=== PATIENT | male | born 1950 | race Two or more races ===

== ENCOUNTER 2024-10-31 06:05 | Inpatient (IN) | payer MEDICARE, OTHER, SELFPAY ==
[2024-10-22 10:23] LABS: Hemoglobin 13.7 g/dL (13.0-18.0); Mean Corp Hgb Conc. 31.9 g/dL (33.0-37.0); Mean Corpuscular Hgb 28.7 pg (27.0-31.0); Mean Corpuscular Volume 90.1 fL (80.0-94.0); Mean Platelet Volume 10.9 fL (7.4-10.4); Platelet Count 164 10^3/uL (130-400); Red Blood Cell Count 4.77 10^6/uL (4.70-6.10); Red Cell Dist. Width 13.7 % (11.5-14.5); White Blood Cell Count 9.6 10^3/uL (4.8-10.8)
[2024-10-22 10:33] LABS: INR 1.22
[2024-10-22 10:34] LABS: APTT 33.3 Sec (23.4-35.0)
[2024-10-22 11:26] LABS: ALT (SGPT) 52 U/L (0-50); AST (SGOT) 49 U/L (17-59); Albumin 4.6 g/dl (3.5-5.0); Alkaline Phosphatase 86 U/L (38-126); Blood Urea Nitrogen 19 mg/dl (9-20); Calcium 9.8 mg/dl (8.4-10.2); Carbon Dioxide 26 mmol/L (22-30); Chloride 102 mmol/L (98-107); Glucose 151 mg/dl (70-99); Potassium 5.3 mmol/L (3.5-5.1); Sodium 139 mmol/L (135-145); Total Bilirubin 0.8 mg/dl (0.2-1.3); Total Protein 7.1 g/dl (6.3-8.2); eGFR 52.74
[2024-10-22 11:28] LABS: Glycohemoglobin (HgbA1c) 7.1 % (4.0-5.6)
[2024-10-22 11:54] LABS: CEA 5.49 ng/ml
[2024-10-22 13:09] VITALS: BMI 30.9
--- NOTE | 2024-10-23 08:17 | PTCARENOTE ---
Mera @ Dr. Harper office notified of patients 10/22 Creat- 1.4; GFR- 52.74; A1C- 7.1
[2024-10-31] VITALS (13 sets, daily range): BP systolic 133–163; BP diastolic 66–86; BMI 30.9
[2024-10-31] MEDS: ENTEREG 12 MG PO (06:23)
[2024-10-31] MEDS: TYLENOL 1000 MG PO (06:23)
[2024-10-31] MEDS: HEPARIN 5000 UNITS SC (06:23)
[2024-10-31] MEDS: NORMOSOL-R/PLASMALYTE-A 1000 IV (06:30)
[2024-10-31 06:40] LABS: Glucose - Point of Care 118 mg/dl (70-99)
--- NOTE | 2024-10-31 11:35 | W.OR.COLCA ---
Colon Cancer Post Op Note
Immediate Post Op
Primary Surgeon: Dylan Whitaker MD
Pond Worker: RUTH Gomez
Pre-op Diagnosis: Ascending colon polyp (possible cancer)
Post-op Diagnosis: Same
Procedure Performed: Robotic right colectomy with isoperistaltic intracorporeal anastomosis
Anesthesia Type: GET
Specimen / Cultures: Right colon and portion of the omentum
Estimated Blood Loss: 40cc
Complications: None
Operative Findings: Ink and 4cm polypoid lesion in the ascending colon
Small epigastric hernia
Patient's niece updated
Colon Resection
Colon Resection
Operation performed with curative intent: Yes
Tumor Location: Ascending Colon
Right Hemicolectomy: Ileocolic and Right Colic
[2024-10-31 11:58] LABS: Glucose - Point of Care 197 mg/dl (70-99)
[2024-10-31 12:25] LABS: % Basophils 0.2 % (0-2); % Eosinophils 0.1 % (0-6); % Immature Granulocytes 0.5 % (0-0.5); % Lymphocytes 6.6 % (20.5-51.1); % Monocytes 1.5 % (1.7-9.3); % Neutrophils 91.1 % (42.2-75.2); Absolute Immature Granulocytes 0.1 10^3/uL (0-0.05); Absolute Lymphocytes 0.9 10^3/uL (1.2-3.4); Absolute Monocytes 0.2 10^3/uL (0.1-0.6); Absolute Neutrophils 11.8 10^3/uL (1.4-6.5); Hematocrit 37.7 % (39.0-52.0); Hemoglobin 12.2 g/dL (13.0-18.0); Mean Corp Hgb Conc. 32.4 g/dL (33.0-37.0); Mean Corpuscular Hgb 28.5 pg (27.0-31.0); Mean Corpuscular Volume 88.1 fL (80.0-94.0); Mean Platelet Volume 10.5 fL (7.4-10.4); Nucleated Red Blood Cells % 0 % (-); Platelet Count 141 10^3/uL (130-400); Red Blood Cell Count 4.28 10^6/uL (4.70-6.10); Red Cell Dist. Width 13.4 % (11.5-14.5)
[2024-10-31] MEDS: NOVOLOG vial 2 UNITS SC (12:34)
[2024-10-31 12:38] LABS: Blood Urea Nitrogen 17 mg/dl (9-20); Calcium 8.6 mg/dl (8.4-10.2); Carbon Dioxide 19 mmol/L (22-30); Chloride 101 mmol/L (98-107); Estimated Creatinine Clearance 75 ml/min; Glucose 200 mg/dl (70-99); Potassium 4.4 mmol/L (3.5-5.1); Sodium 136 mmol/L (135-145); eGFR > 60.00
[2024-10-31] MEDS: TYLENOL 650 MG PO ×3 (12:39→19:57)
[2024-10-31] MEDS: NSS 1000 IV (13:22)
[2024-10-31 16:27] LABS: Glucose - Point of Care 173 mg/dl (70-99)
[2024-10-31] MEDS: LIPITOR 20 MG PO (17:44)
[2024-10-31] MEDS: PEPCID 40 MG PO (17:44)
[2024-10-31] MEDS: NOVOLOG FLEXPEN-LOW RESISTANCE 1 UNITS SC (17:44)
[2024-10-31] MEDS: ZETIA 10 MG PO (17:44)
[2024-10-31] MEDS: SYNTHROID 100 MCG PO (17:45)
[2024-10-31] MEDS: MURO-128/ADSORBONAC 2% EYE DROPS 1 DROP BOTH EYES (17:45)
[2024-10-31] MEDS: SYMBICORT 80/4.5 MCG INHALER 2 PUFF INH (18:05)
[2024-10-31] MEDS: ZESTRIL 20 MG PO (19:57)
[2024-10-31] MEDS: TOPROL XL 50 MG PO (19:57)
[2024-10-31 23:36] LABS: Glucose - Point of Care 211 mg/dl (70-99)
[2024-11-01] MEDS: TYLENOL 650 MG PO ×4 (00:06→20:41)
[2024-11-01] MEDS: NSS 1000 IV ×2 (01:40→15:04)
[2024-11-01 03:00] VITALS: BP 156/78
[2024-11-01] MEDS: TYLENOL PO ×2 (04:54→11:46)
[2024-11-01 06:10] LABS: % Basophils 0.1 % (0-2); % Immature Granulocytes 0.5 % (0-0.5); % Lymphocytes 6.6 % (20.5-51.1); % Monocytes 7.2 % (1.7-9.3); % Neutrophils 85.6 % (42.2-75.2); Absolute Immature Granulocytes 0.1 10^3/uL (0-0.05); Absolute Lymphocytes 0.9 10^3/uL (1.2-3.4); Absolute Monocytes 0.9 10^3/uL (0.1-0.6); Absolute Neutrophils 11.1 10^3/uL (1.4-6.5); Hematocrit 35.7 % (39.0-52.0); Hemoglobin 11.6 g/dL (13.0-18.0); Mean Corp Hgb Conc. 32.5 g/dL (33.0-37.0); Mean Corpuscular Hgb 28.1 pg (27.0-31.0); Mean Corpuscular Volume 86.4 fL (80.0-94.0); Nucleated Red Blood Cells % 0 % (-); Platelet Count 148 10^3/uL (130-400); Red Blood Cell Count 4.13 10^6/uL (4.70-6.10); Red Cell Dist. Width 13.5 % (11.5-14.5); White Blood Cell Count 12.9 10^3/uL (4.8-10.8)
[2024-11-01 06:29] LABS: Blood Urea Nitrogen 19 mg/dl (9-20); Calcium 8.8 mg/dl (8.4-10.2); Carbon Dioxide 24 mmol/L (22-30); Chloride 96 mmol/L (98-107); Estimated Creatinine Clearance 69 ml/min; Glucose 228 mg/dl (70-99); Potassium 5.2 mmol/L (3.5-5.1); Sodium 134 mmol/L (135-145); eGFR > 60.00
[2024-11-01] MEDS: SYMBICORT 80/4.5 MCG INHALER 2 PUFF INH ×2 (07:57→20:51)
[2024-11-01 07:59] LABS: Glucose - Point of Care 243 mg/dl (70-99)
[2024-11-01 08:05] VITALS: BP 158/79
[2024-11-01] MEDS: ZYLOPRIM 100 MG PO (08:09)
[2024-11-01] MEDS: PROTONIX 40 MG PO (08:09)
[2024-11-01] MEDS: NOVOLOG FLEXPEN-LOW RESISTANCE 2 UNITS SC ×3 (08:09→16:26)
[2024-11-01] MEDS: ZESTRIL 20 MG PO ×2 (08:09→20:41)
[2024-11-01] MEDS: TOPROL XL 50 MG PO ×2 (08:10→20:41)
[2024-11-01] MEDS: ENTEREG 12 MG PO ×2 (08:11→20:40)
[2024-11-01 09:37] VITALS: BP 159/86; PULSE 70; O2SAT 98
--- NOTE | 2024-11-01 09:53 | CM ---
Reviewed the chart notes and spoke with the patient at the bedside. The patient is s/p elective robotic right colectomy with intracorporeal
anastomosis. The patient resides alone in a condo with graduated four steps to enter and then seven steps down to bedroom. The patient reports having a cane and rollator in home if needed. The patient reports no VN/SNF in the past. The patient
confirmed his [facility] of choice is [facility] and his PCP is Dr. Rothman. CM continues to be available to patient/family and is monitoring medical plan for needs at discharge.
Plan: Discharge to home when medically stable. No needs anticipated at this time.
--- NOTE | 2024-11-01 10:55 | W.PN.GS2 ---
Addendum entered and electronically signed by AIDEN Butler 11/02/24 08:59:
correction to below: should read hyponatremia not hypokalemia secondary to fluid shifts
Original Note:
Today's Communication / Plan
-
Voiding trial
Pain control
Assessment / Plan
-
74 yo male with h/o afib (LD eliquis was 10/31), NIDDM, HTN with possible CA to the ascending colon now POD #1 robotic right colectomy
AFVSS
Mild acute anemia secondary to hemodilution and expected intraop losses, stable
Mild reactive leukocytosis, trending down
Mild hyperkalemia (stable from previous) and hypokalemia secondary to fluid shifts, will follow
--Continue CLD, possible advancement later today if belching resolves
--Analgesics/antiemetics
--c/w home meds, Eliquis on hold 48-72 hours post operatively
--PPI for GI ppx
--OOB/Ambulate, PT following
--D/C mary for voiding trial
--C/W IVF, decrease rate to 60ml/hr
--Trend labs
--Lovenox 40mg sq for VTE ppx
Subjective Data
-
Date of Service: November 01, 2024
Patient seen and examined at bedside with Dr. Tobin. Reports he is passing some flatus and a small liquid stool but is having burping and indigestion as well. Denies n/v. Some incisional soreness. Reports he feels weak overall when trying to move.
Objective Data
-
Intake and Output
10/31/24 11/01/24 11/02/24
06:59 06:59 06:59
Intake Total 194 / 1940
Output Total 1500 / 1500 600 / 600
Balance 440 / 440 -600 / -600
Intake:
Oral fluids 480 / 480
IV fluids (Total) 1460 / 1460
Normosal 100 / 100
Output:
Urine, Mary 1500 / 1500 600 / 600
Vital Signs
Temp Pulse Resp BP Pulse Ox
97.7 F 71 16 158/79 99
11/01/24 08:05 11/01/24 08:10 11/01/24 08:05 11/01/24 08:10 11/01/24 08:05
Lab Results
11/01/24 04:26
11/01/24 04:26
Calcium 8.8 mg/dl (8.4-10.2) 11/01/24 04:26
Total Bilirubin 0.8 mg/dl (0.2-1.3) 10/22/24 09:05
AST 49 U/L (17-59) 10/22/24 09:05
ALT 52 U/L (0-50) H 10/22/24 09:05
Alkaline Phosphatase 86 U/L (38-126) 10/22/24 09:05
Total Protein 7.1 g/dl (6.3-8.2) 10/22/24 09:05
Albumin 4.6 g/dl (3.5-5.0) 10/22/24 09:05
Physical Exam
-
NAD
ABD soft, minimal incisional tenderness, mild distention
Incisions clear, dry, intact
Mary with clear, yellow urine
[2024-11-01 11:26] VITALS: BP 151/79
[2024-11-01 11:34] LABS: Glucose - Point of Care 223 mg/dl (70-99)
[2024-11-01 15:28] VITALS: BP 138/79
[2024-11-01 16:16] LABS: Glucose - Point of Care 207 mg/dl (70-99)
[2024-11-01] MEDS: ZETIA 10 MG PO (17:42)
[2024-11-01] MEDS: PEPCID 40 MG PO (17:42)
[2024-11-01] MEDS: LIPITOR 20 MG PO (17:42)
[2024-11-01] MEDS: SYNTHROID 100 MCG PO (17:42)
[2024-11-01] MEDS: LOVENOX 40 MG SC (17:43)
[2024-11-01] MEDS: MURO-128/ADSORBONAC 2% EYE DROPS 1 DROP BOTH EYES (17:43)
[2024-11-01 21:53] LABS: Glucose - Point of Care 204 mg/dl (70-99)
[2024-11-01 23:38] VITALS: BP 126/80
[2024-11-02] MEDS: TYLENOL 650 MG PO ×4 (00:43→12:01)
[2024-11-02 07:10] VITALS: BP 138/73
[2024-11-02 07:28] LABS: Glucose - Point of Care 178 mg/dl (70-99)
[2024-11-02] MEDS: ZESTRIL 20 MG PO (07:50)
[2024-11-02] MEDS: ENTEREG 12 MG PO (07:52)
[2024-11-02] MEDS: NOVOLOG FLEXPEN-LOW RESISTANCE 1 UNITS SC ×2 (07:52→12:02)
[2024-11-02] MEDS: PROTONIX 40 MG PO (07:52)
[2024-11-02] MEDS: ZYLOPRIM 100 MG PO (07:52)
[2024-11-02] MEDS: TOPROL XL 50 MG PO (07:52)
[2024-11-02] MEDS: NSS IV (08:00)
[2024-11-02 08:02] LABS: Hematocrit 34.8 % (39.0-52.0); Hemoglobin 11.5 g/dL (13.0-18.0); Mean Corpuscular Hgb 28.9 pg (27.0-31.0); Mean Corpuscular Volume 87.4 fL (80.0-94.0); Platelet Count 134 10^3/uL (130-400); Red Blood Cell Count 3.98 10^6/uL (4.70-6.10); Red Cell Dist. Width 13.5 % (11.5-14.5); White Blood Cell Count 11.9 10^3/uL (4.8-10.8)
[2024-11-02 08:34] LABS: Blood Urea Nitrogen 15 mg/dl (9-20); Calcium 8.9 mg/dl (8.4-10.2); Carbon Dioxide 25 mmol/L (22-30); Chloride 102 mmol/L (98-107); Estimated Creatinine Clearance 83 ml/min; Glucose 158 mg/dl (70-99); Potassium 4.7 mmol/L (3.5-5.1); Sodium 135 mmol/L (135-145); eGFR > 60.00
--- NOTE | 2024-11-02 08:56 | W.PN.GS2 ---
Today's Communication / Plan
-
Advance diet
Assessment / Plan
-
74 yo male with h/o afib (LD eliquis was 10/31), NIDDM, HTN with possible CA to the ascending colon now POD #2 robotic right colectomy
AFVSS
H/H stable
Mild reactive leukocytosis, trending down
Mild hyperkalemia and hyponatremia on 11/01 now resolved
--Advance to LRD
--Analgesics/antiemetics
--c/w home meds, Eliquis on hold for now, anticipate will be able to resume tomorrow
--PPI for GI ppx
--OOB/Ambulate, PT following
--D/C IVF
--Lovenox 40mg sq for VTE ppx
discharge to home later today vs tomorrow pending diet tolerance
Subjective Data
-
Date of Service: November 02, 2024
Patient seen and examined at bedside with Dr. Philip. Calloway n/v. Tolerating clears. Passing stools and flatus. Pain well controlled. OOB to chair. Voiding without difficulty.
Objective Data
-
Intake and Output
11/01/24 11/02/24 11/03/24
06:59 06:59 06:59
Intake Total 1940 / 1940 2200 / 2200 720 / 720
Output Total 1500 / 1500 3300 / 3300 900 / 900
Balance 440 / 440 -1100 / -1100 -180 / -180
Intake:
Oral fluids 480 / 480 1440 / 1440
IV fluids (Total) 1460 / 1460 760 / 760 720 / 720
Normosal 100 / 100
Output:
Urine, Gonzales 1500 / 1500 600 / 600
Urine, Voided 2700 / 2700 900 / 900
Vital Signs
Temp Pulse Resp BP Pulse Ox
98.7 F 71 16 138/73 97
11/02/24 07:10 11/02/24 07:52 11/02/24 07:10 11/02/24 07:52 11/02/24 07:10
Lab Results
11/02/24 07:13
11/02/24 07:13
Calcium 8.9 mg/dl (8.4-10.2) 11/02/24 07:13
Total Bilirubin 0.8 mg/dl (0.2-1.3) 10/22/24 09:05
AST 49 U/L (17-59) 10/22/24 09:05
ALT 52 U/L (0-50) H 10/22/24 09:05
Alkaline Phosphatase 86 U/L (38-126) 10/22/24 09:05
Total Protein 7.1 g/dl (6.3-8.2) 10/22/24 09:05
Albumin 4.6 g/dl (3.5-5.0) 10/22/24 09:05
Physical Exam
-
NAD
ABD soft, minimal incisional tenderness, ND
Incisions clear, dry, intact glue
[2024-11-02] MEDS: SYMBICORT 80/4.5 MCG INHALER 2 PUFF INH (09:00)
[2024-11-02 11:29] LABS: Glucose - Point of Care 198 mg/dl (70-99)
--- NOTE | 2024-11-02 11:30 | W.DS.TRANS ---
Addendum entered and electronically signed by AIDEN Butler 11/03/24 16:46:
dictated #[id number]
Original Note:
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
-
Discharge Instructions:
Sleep Apnea Risk Intermediate
Discharge Diagnosis/Procedures Robotic right colectomy
Diet Low Fiber
Activity No strenuous activity
Additional Activity do not lift over 10lbs (gallon of milk)
Bathing Restrictions OK to Shower
Wound Care Avoid picking the glue off your incisions; allow
it to fall off on its own over the next 2-3
weeks
Instructions: Low-fiber diet
Stand-Alone Forms:
Changes to Home Medications: No
Discharge Medications:
DC Medications w/original date entered in [facility]
allopurinol 100 mg tablet 100 mg PO DAILY 10/24/24
apixaban 5 mg tablet (Eliquis) 5 mg PO BID 10/24/24
atorvastatin 20 mg tablet 20 mg PO QPM 10/24/24
azelastine 1 spray intranasal PRN PRN ALLERGIES 10/24/24
ezetimibe 10 mg tablet 10 mg PO QPM 10/24/24
famotidine 40 mg tablet 40 mg PO QPM 10/24/24
fluticasone furoate 100 mcg-vilanterol 25 mcg/dose inhalation powder (Breo Ellipta) 1 inh inhalation DAILY 10/24/24
levothyroxine 100 mcg tablet 100 mcg PO QPM 10/24/24
lisinopril 20 mg tablet 20 mg PO BID 10/24/24
metformin 500 mg tablet 500 mg PO BID 10/24/24
metoprolol succinate 50 mg tablet,extended release 24 hr 50 mg PO BID 10/24/24
pantoprazole 40 mg tablet,delayed release 40 mg PO DAILY 10/24/24
polyethylene glycol 3350 17 gram/dose oral powder (Miralax) 4 g PO DAILY 10/24/24
probenecid 500 mg tablet 500 mg PO DAILY 10/24/24
sitagliptin phosphate 100 mg tablet (Januvia) 100 mg PO DAILY 10/24/24
sodium chloride 2 % eye drops (Jacinda 128) 1 drp ophthalmic (eye) QPM 10/24/24
Cholest Off 1 tab PO BID 10/27/24
Citracal 1 tab PO DAILY 10/27/24
Glucosamine Chondroitin 1 tab PO QPM 10/27/24
Glucosamine Chondroitin 2 tab PO DAILY 10/27/24
Elmer Benfotiamine 250 mg PO DAILY 10/27/24
Probiotic Complex 1 cap PO DAILY 10/27/24
Super De Beque 3 1 cap PO BID 10/27/24
Vitamin E-400 1 cap PO DAILY 10/27/24
chromium picolinate 200 mcg tablet 400 mcg PO DAILY 10/27/24
lycopene 10 mg capsule 30 mg PO BID 10/27/24
ggvnmbpatqbg-qatsazlc-pvlkip tablet 1 tab PO DAILY 10/27/24
omega 0-yxc-ulh-fish oil 1,200 mg (144 mg-216 mg) capsule (Fish Oil) 1 cap PO BID 10/27/24
acetaminophen 325 mg tablet 650 mg (2 x 325 mg) PO Q4HPRN PRN mild pain #1 tab 11/02/24
oxycodone 5 mg tablet 5 mg PO Q4HPRN PRN breakthrough/severe pain #10 tabs 11/02/24
Home Medication Changes
Pending Results: No
--- NOTE | 2024-11-02 12:12 | CM ---
Reviewed the chart notes and spoke with the patient at the bedside. IMM reviewed and placed on chart. Patient is being discharged to home today with no additional needs. Patient's friend is providing transportation.
Plan: Discharge to home today. No needs.
[2024-11-02 12:30] VITALS: BP 128/76
== END 2024-11-02 13:00 | disposition home or self-care (01) | DRG 330 ==
LOC: 2 SOUTH 06:05
PROVIDERS: Registered Nurse; ADMITTING PHYSICIAN Surgery; FAMILY PHYSICIAN Family Medicine
PROC: 8E0W4CZ Robotic Assisted Procedure of Trunk Region, Percutaneous Endoscopic Approach (ICD-10-PCS; 2024-10-31)
PROC: 0DTF4ZZ Resection of Right Large Intestine, Percutaneous Endoscopic Approach (ICD-10-PCS; 2024-10-31)
DX: K63.89 Other specified diseases of intestine (principal); D62 Acute posthemorrhagic anemia; E87.1 Hypo-osmolality and hyponatremia; K43.9 Ventral hernia without obstruction or gangrene; K63.5 Polyp of colon; I48.91 Unspecified atrial fibrillation; Z79.01 Long term (current) use of anticoagulants; Z79.84 Long term (current) use of oral hypoglycemic drugs; E11.9 Type 2 diabetes mellitus without complications; I10 Essential (primary) hypertension; D72.829 Elevated white blood cell count, unspecified; E87.5 Hyperkalemia
CPT/HCPCS: 88309; 36415; 80048; 80053; 82378; 82962; 83036; 85025; 85027; 85610; 85730; 86850; 86900; 86901; 93005; 94640; 97162; J1335